=== PATIENT | male | born 1955 | race Caucasian/White ===

== ENCOUNTER 2017-09-03 07:03 | Day surgery (SDC) | payer OTHER ==
[2017-09-03] MEDS ORDERED: LIDOCAINE VISCOUS 2% 15ML UD ONE (08:28)
[2017-09-03] MEDS ORDERED: SODIUM CHLORIDE LOCK 10 ML ONE (08:28)
[2017-09-03] MEDS ORDERED: diphenhdrAMINE HCL 50 MG/1 ML VL ONE (08:29)
[2017-09-03 09:01] LABS: Basophils # (auto) 0.1 uL; Basophils % (auto) 0.8 % (0.0-2.0); Eosinophils # (auto) 0.1 uL; Hematocrit 43.6 % (36.0-46.0); Hemoglobin 14.7 g/dL (12.2-16.2); Lymphocytes # (auto) 1.4 uL; Lymphocytes % (auto) 19.6 % (10.0-50.0); Mean Corpuscular Hemoglobin 31.1 pg (28.0-32.0); Mean Corpuscular Hgb Conc. 33.7 g/dL (32.0-36.0); Mean Corpuscular Volume 92.1 fL (80.0-100.0); Monocytes # (auto) 0.5 uL; Monocytes % (auto) 7.2 % (0.0-12.0); Neutrophils # (auto) 4.9 uL; Neutrophils % (auto) 70.4 % (37.0-80.0); Nucleated Red Blood Cells % 0.1 %; Platelet Count (auto) 152 10^3/uL (140-450); Red Blood Cells 4.74 10^6/uL (4.0-5.20); Red Cell Distribution Width 14.1 % (11.8-14.3)
[2017-09-03 09:22] LABS: INR 0.97 (0.9-1.15); Partial Thromboplastin Time 26.7 sec (23.78-33.04); Prothrombin Time 10.4 sec (9.27-12.13)
[2017-09-03] MEDS: MIDAZOLAM HCL 5 MG/ML-1ML VIAL ONE ×4 (09:52→10:07)
[2017-09-03] MEDS: fentaNYL CITRATE 100 MCG/2 ML VL ONE ×3 (09:52→10:07)
[2017-09-03 10:59] VITALS: BP 135/88
== END 2017-09-03 10:24 | disposition home or self-care (01) ==
LOC: GI 07:03 → EDSEX 07:03 → GI 10:24
PROVIDERS: ATTEND Internal Medicine Gastroenterology
DX: Z12.11 Encounter for screening for malignant neoplasm of colon (principal); K63.5 Polyp of colon; K64.8 Other hemorrhoids; K29.50 Unspecified chronic gastritis without bleeding; K29.80 Duodenitis without bleeding; B19.20 Unspecified viral hepatitis C without hepatic coma; I10 Essential (primary) hypertension; D64.9 Anemia, unspecified; Z90.49 Acquired absence of other specified parts of digestive tract; Z79.1 Long term (current) use of non-steroidal anti-inflammatories (NSAID); Z79.899 Other long term (current) drug therapy
CPT/HCPCS: 36415; 43239; 45380; 85025; 85610; 85730; 88305; 88342; J1200; J2250; J3010; J7030; 99152; A6257

== ENCOUNTER → 2019-01-03 | Outpatient (CLI) | payer OTHER | END | disposition home or self-care (01) | LOC: CT 10:56 | DX: G95.89 Other specified diseases of spinal cord (principal); M45.4 Ankylosing spondylitis of thoracic region; K80.20 Calculus of gallbladder without cholecystitis without obstruction; K43.9 Ventral hernia without obstruction or gangrene; J44.9 Chronic obstructive pulmonary disease, unspecified; M46.54 Other infective spondylopathies, thoracic region; A52.0 Cardiovascular and cerebrovascular syphilis | CPT/HCPCS: 71250 ==